=== PATIENT | female | born 1965 | race Caucasian/White ===

== ENCOUNTER 2016-12-03 09:07 | Emergency (ER) | payer MEDICAID ==
[2016-12-03 09:07] VITALS: BMI 40.1
[2016-12-03] MEDS ORDERED: Sodium Chloride 0.9% 1,000 ML IV ONE (09:42)
[2016-12-03] MEDS ORDERED: Lidocaine 2% Viscous 100 ml PO STA (09:42)
[2016-12-03] MEDS ORDERED: Aluminum Hydroxide/Magnesium Hydroxide Susp (30 mL) PO STA (09:42)
--- NOTE | 2016-12-03 09:48 | C.PDOC ---
History Of Present Illness 51 year old female with PMH of gastritis, NIDDM and angina presents to ED with complains of burning and sourness to her throat, esophagus and stomach for 1 week. Patient also reports associated nausea and one episode of vomiting today. She states she has appointment with GI next month. She is currently not taking any medications for gastritis. Denies any abdominal or back pain, dysuria, diarrhea, constipation. Time Seen by Provider: 12/03/16 09:37 Chief Complaint (Nursing): Abdominal Pain History Per: Patient History/Exam Limitations: no limitations Onset/Duration Of Symptoms: Days Current Symptoms Are (Timing): Still Present Severity: Moderate Radiation Of Pain To:: None Quality Of Discomfort: Burning Associated Symptoms: Nausea, Vomiting. denies: Fever, Diarrhea, Back Pain, Constipation, Urinary Symptoms Exacerbating Factors: None Alleviating Factors: None Recent travel outside of the [place]: No Past Medical History Reviewed: Historical Data, Nursing Documentation, Vital Signs Vital Signs: Last Vital Signs Temp 97.5 F L 12/03/16 11:00 Pulse 67 12/03/16 11:00 Resp 18 12/03/16 11:00 BP 115/78 12/03/16 11:00 Pulse Ox 96 12/03/16 18:59 - Medical History PMH: Anxiety, Diabetes, Gastritis, Hiatal Hernia Denies: Chronic Kidney Disease - [facility] Procedures ESOPHAGOGASTRODUODENOSCOPY [EGD] W/CLOSED BIOPSY (07/07/14) Family History: States: Unknown Family Hx - Social History Hx Alcohol Use: No Hx Substance Use: No - Immunization History Hx Tetanus Toxoid Vaccination: No Hx Influenza Vaccination: Yes Hx Pneumococcal Vaccination: No Review Of Systems Constitutional: Negative for: Fever, Chills Gastrointestinal: Positive for: Nausea, Vomiting, Other (burning and sourness to throat, esophagus and stomach). Negative for: Abdominal Pain, Diarrhea, Constipation Genitourinary: Negative for: Dysuria, Frequency, Hematuria Physical Exam - Physical Exam Appears: Non-toxic, No Acute Distress Skin: Warm, Dry, No Rash Head: Atraumatic, Normacephalic Eye(s): bilateral: Normal Inspection Nose: Normal Oral Mucosa: Moist Throat: Normal, No Erythema, No Drooling Neck: Normal, Normal ROM, Supple Lymphatic: Normal Exam, No Adenopathy Chest: Symmetrical Cardiovascular: Rhythm Regular, No Murmur Respiratory: Normal Breath Sounds, No Rales, No Rhonchi, No Wheezing Gastrointestinal/Abdominal: Normal Exam, Soft, No Tenderness, No Mass, No Distention, No Guarding, No Hernia Back: Normal Inspection, No CVA Tenderness Extremity: Bilateral: Atraumatic, Normal Color And Temperature, Normal ROM Neurological/Psych: Oriented x3, Normal Speech Gait: Steady ED Course And Treatment - Laboratory Results Result Diagrams: 12/03/16 10:01 12/03/16 10:01 Lab Interpretation: No Acute Changes ECG: Interpreted By Me, Viewed By Me (Dr kong) ECG Rhythm: Sinus Rhythm ECG Interpretation: No Acute Changes Interpretation Of ECG: Nonspecific T wave abnormality Rate From EC (BPM) O2 Sat by Pulse Oximetry: 96 (room air) Pulse Ox Interpretation: Normal Medical Decision Making Medical Decision Making: Impression: 51 y.o with epigastric burning pain, likely gastritis or GERD Plan: * EKG * Labs * IV NS, GI cocktail Progress: Labs reviewed with no acute findings On re-eval: Patient is resting comfortably, in no distress, abdomen is soft, no rebound or guarding, and is tolerating PO. Patient reports symptoms have improved. Patient has no signs or symptoms to suggest surgical pathology. Symptoms likely related to gastritis or GERD. Patient was advised to follow up without fail with physician/clinic and GI or to return to the ER for reevaluation in 1-2 days. Rx was given Disposition Counseled Patient/Family Regarding: Diagnosis, Need For Followup, Rx Given - Disposition Referrals: Kalani Bocanegra APN [Advanced Practice Nurse] - Disposition: HOME/ ROUTINE Disposition Time: 10:51 Condition: IMPROVED Additional Instructions: Noah un seguimiento con amador mdico o en 2-5 rachel para danika evaluacin ms detallada. Recomendar el seguimiento con el [facility]. [place] los medicamentos seg n lo prescrito. Regrese al servicio de urgencias en cualquier momento si los s ntomas persisten o empeoran. Prescriptions: Omeprazole 20 mg PO DAILY #30 tablet. Instructions: Gastritis (DC) Print Language: WELSH - POA Present On Arrival: None - Clinical Impression Clinical Impression: Gastritis - PA / OBJECT ORIENTED DEVELOPER / Resident Statement MD/DO has reviewed & agrees with the documentation as recorded. - Scribe Statement The provider has reviewed the documentation as recorded by the Nicykibjacob Jackson All medical record entries made by the Chuck were at my direction and personally dictated by me. I have reviewed the chart and agree that the record accurately reflects my personal performance of the history, physical exam, medical decision making, and the department course for this patient. I have also personally directed, reviewed, and agree with the discharge instructions and disposition.
[2016-12-03 10:08] LABS: BASO # 0.1 K/uL (0.0-0.2); BASO % 0.8 % (0.0-2.0); EOS # 0.4 K/uL (0.0-0.7); EOS % 4.5 % (0.0-4.0); HEMATOCRIT 39.7 % (34.0-47.0); LYMPH # 1.8 K/uL (1.0-4.3); LYMPH % 20.4 % (20.0-40.0); MEAN CELL VOLUME 85.4 fL (81.0-99.0); MEAN CORPUSCULAR HEMOGLOBIN 28.2 pg (27.0-31.0); MEAN PLATELET VOLUME 7.8 fL (7.2-11.7); MONO # 0.4 K/uL (0.0-0.8); MONO % 4.5 % (0.0-10.0); NRBC % 0.1 % (0.0-2.0); RED CELL DISTRIBUTION WIDTH 14.2 % (11.5-14.5); WHITE BLOOD COUNT 8.8 K/uL (4.8-10.8)
[2016-12-03] MEDS ORDERED: Sodium Chloride 0.9% 1,000 ML ONE (10:11)
[2016-12-03] MEDS ORDERED: Aluminum Hydroxide/Magnesium Hydroxide Susp (30 mL) ONE (10:11)
[2016-12-03 10:16] LABS: RBC URINE 1 /hpf (0-3); URINE BILIRUBIN NEGATIVE (NEGATIVE); URINE BLOOD NEGATIVE (NEGATIVE); URINE COLOR Yellow (YELLOW); URINE GLUCOSE (UA) NORMAL (Normal); URINE KETONE NEGATIVE (NEGATIVE); URINE LEUKOCYTE ESTERASE NEG Leu/uL (Negative); URINE PROTEIN NEGATIVE (NEGATIVE); URINE UROBILINOGEN NORMAL mg/dL (0.2-1.0); WBC URINE < 1 /hpf (0-5)
[2016-12-03 10:33] LABS: CHLORIDE 98 mmol/L (98-107)
[2016-12-03 10:34] LABS: SODIUM 138 mmol/L (132-148)
[2016-12-03 10:36] LABS: ALB/GLOB RATIO 1.5 (1.0-2.1); ALKALINE PHOSPHATASE 64 U/L (38-126); AST/SGOT 35 U/L (14-36); BILIRUBIN,TOTAL 0.8 mg/dL (0.2-1.3); CARBON DIOXIDE 27 mmol/L (22-30); GFR AFRICAN-AMERICAN > 60; TOTAL PROTEIN 8.3 g/dL (6.3-8.3)
[2016-12-03 10:37] LABS: ALT/SGPT 32 U/L (9-52); BLOOD UREA NITROGEN 9 mg/dL (7-17); CALCIUM 9.5 mg/dl (8.6-10.4); GLUCOSE,RANDOM 154 mg/dL (65-105)
[2016-12-03 11:02] VITALS: BP 115/78; PULSE 67; RESP 18; TEMP 97.5
[2016-12-03 18:59] VITALS: O2SAT 96
== END 2016-12-03 11:15 | disposition home or self-care (01) ==
LOC: C.ER 09:07
DX: K29.70 Gastritis, unspecified, without bleeding (principal)
CPT/HCPCS: 80053; 81001; 83690; 85025; 96361; 96374; 96375; 99284; J1885; J2405; J7040

== ENCOUNTER 2016-12-10 09:08 | Emergency (ER) | payer MEDICAID ==
[2016-12-10 09:14] VITALS: BMI 39.9
[2016-12-10 09:49] LABS: URINE BILIRUBIN NEGATIVE (NEGATIVE); URINE BLOOD NEGATIVE (NEGATIVE); URINE COLOR Yellow (YELLOW); URINE GLUCOSE (UA) NORMAL (Normal); URINE KETONE NEGATIVE (NEGATIVE); URINE LEUKOCYTE ESTERASE NEG Leu/uL (Negative); URINE PROTEIN NEGATIVE (NEGATIVE); URINE UROBILINOGEN NORMAL mg/dL (0.2-1.0); WBC URINE 1 /hpf (0-5)
--- NOTE | 2016-12-10 11:06 | C.PDOC ---
History Of Present Illness 51 y/o female presents to ED with complaints of lower back pain for 1 week associated with dysuria. Patient denies increased urinary frequency, n/v/d, cp, sob, cough, recent trauma, fall or any other complaints at this time. Time Seen by Provider: 12/10/16 09:29 Chief Complaint (Nursing): Female Genitourinary History Per: Patient History/Exam Limitations: no limitations Onset/Duration Of Symptoms: Days Current Symptoms Are (Timing): Still Present Associated Symptoms: Urinary Symptoms. denies: Nausea, Vomiting, Diarrhea Past Medical History Reviewed: Historical Data, Nursing Documentation, Vital Signs Vital Signs: Last Vital Signs Temp 98.2 F 12/10/16 11:00 Pulse 78 12/10/16 11:00 Resp 18 12/10/16 11:00 BP 132/75 12/10/16 11:00 Pulse Ox 100 12/10/16 11:10 - Medical History PMH: Anxiety, Diabetes, Gastritis, Hiatal Hernia - [facility] Procedures ESOPHAGOGASTRODUODENOSCOPY [EGD] W/CLOSED BIOPSY (07/07/14) Family History: States: Unknown Family Hx - Social History Hx Alcohol Use: No Hx Substance Use: No - Immunization History Hx Tetanus Toxoid Vaccination: No Hx Influenza Vaccination: No Hx Pneumococcal Vaccination: No Review Of Systems Except As Marked, All Systems Reviewed And Found Negative. Constitutional: Negative for: Fever Cardiovascular: Negative for: Chest Pain Respiratory: Negative for: Cough, Shortness of Breath Gastrointestinal: Negative for: Nausea, Vomiting, Diarrhea Genitourinary: Positive for: Dysuria Musculoskeletal: Positive for: Back Pain Skin: Negative for: Rash Physical Exam - Physical Exam Appears: Non-toxic, No Acute Distress Skin: Normal Color, Warm Head: Atraumatic, Normacephalic Chest: Symmetrical Cardiovascular: Rhythm Regular, No Murmur Respiratory: Normal Breath Sounds, No Rales, No Rhonchi, No Wheezing Gastrointestinal/Abdominal: Soft, No Tenderness, No Guarding, No Rebound Back: No CVA Tenderness, No Paraspinal Tenderness Extremity: Normal ROM, Capillary Refill (<2 seconds) Neurological/Psych: Oriented x3, Normal Speech, Normal Cognition ED Course And Treatment O2 Sat by Pulse Oximetry: 100 (RA) Pulse Ox Interpretation: Normal Disposition - Disposition Referrals: [facility], [Non-Staff] - Disposition: HOME/ ROUTINE Disposition Time: 11:05 Condition: GOOD Additional Instructions: Thank you for letting us take care of you today. Your provider was Dr. Fontanez. You were treated for lower back pain. The emergency medical care you received today was directed at your acute symptoms. If you were prescribed any medication, please fill it and take as directed. It may take several days for your symptoms to resolve. Return to the Emergency Department if your symptoms worsen, do not improve, or if you have any other problems. Please contact your doctor or call one of the physicians/clinics you have been referred to that are listed on the Patient Visit Information form that is included in your discharge packet. Bring any paperwork you were given at discharge with you along with any medications you are taking to your follow up visit. Our treatment cannot replace ongoing medical care by a primary care provider (PCP) outside of the emergency department. Thank you for allowing the [facility] team to be part of your care today. Follow up with your doctor in 2-3 days for re-evaluation. Prescriptions: Ibuprofen [Motrin] 600 mg PO Q6 PRN #20 tab PRN Reason: Pain, Moderate (4-7) Meclizine [Meclizine*] 25 mg PO Q6 PRN #20 tab PRN Reason: Dizziness Instructions: Acute Low Back Pain (ED) - Clinical Impression Clinical Impression: Low back pain - Scribe Statement The provider has reviewed the documentation as recorded by the Chuck Sr All medical record entries made by the Nickyibjacob were at my direction and personally dictated by me. I have reviewed the chart and agree that the record accurately reflects my personal performance of the history, physical exam, medical decision making, and the department course for this patient. I have also personally directed, reviewed, and agree with the discharge instructions and disposition.
[2016-12-10 11:09] VITALS: O2SAT 100
--- NOTE | 2016-12-10 11:19 | RAD ---
PROCEDURE: Radiographs of the Lumbar Spine. HISTORY: r/o fx COMPARISON: No prior. FINDINGS: BONES: Normal alignment. No listhesis. No fracture. DISC SPACES: Unremarkable. OTHER FINDINGS: Therefore non rib-bearing lumbar vertebrae present. Facet arthrosis a right side inferiorly noted IMPRESSION: No fracture. Right-sided inferior facet arthrosis. Transitional elements suggested -4 lumbar non rib-bearing vertebrae noted
[2016-12-10 11:37] VITALS: BP 132/75; PULSE 78; RESP 18; TEMP 98.2
== END 2016-12-10 11:37 | disposition home or self-care (01) ==
LOC: C.ER 09:08
DX: M54.5 Low back pain (principal)